=== PATIENT | male | born 1985 | race Native Hawaiian/Other Pacific Islander ===

== ENCOUNTER 2019-03-30 02:40 | Outpatient (CLI) | payer BC | END 2019-03-30 02:56 | disposition short-term general hospital (02) | LOC: AMB 02:40 | DX: R55 Syncope and collapse (principal); Z98.890 Other specified postprocedural states | CPT/HCPCS: A0425; A0427 ==

== ENCOUNTER 2019-03-30 03:00 | Emergency (ER) | payer BC ==
[~2019-03-30] VITALS: Ht 177.8 cm; Wt 97.5 kg
[2019-03-30 03:00] VITALS: TEMP 98.6
[2019-03-30 03:58] LABS: PLATELET COUNT 318 K/uL (142-355)
[2019-03-30 04:18] LABS: POTASSIUM 3.5 mmol/L (3.6-5.2); SODIUM 141 mmol/L (136-145)
[2019-03-30 05:09] LABS: PARTIAL THROMBOPLASTIN TIME 18.1 SECONDS (24.5-33.6)
[2019-03-30 08:00] VITALS: BP 113/70
== END 2019-03-30 08:10 | disposition home or self-care (01) ==
LOC: ED 03:00
PROVIDERS: Hospitalist
DX: R55 Syncope and collapse (principal); Z98.890 Other specified postprocedural states
CPT/HCPCS: 36415; 80053; 80320; 82550; 83880; 84484; 85027; 85379; 85610; 85730; 93005; 96360; 96375; 96376; 99284; J2405; Q9963

== ENCOUNTER 2021-09-18 12:35 | Outpatient (CLI) | payer BC | END 2021-09-18 19:12 | disposition home or self-care (01) | LOC: CT 12:35 | PROVIDERS: ATTEND Physician Assistant | DX: R10.2 Pelvic and perineal pain (principal) | CPT/HCPCS: Q9963 ==